=== PATIENT | female | born 1975 | race African-American/Black ===

== ENCOUNTER 2017-05-17 14:13 | Emergency (ER) | payer OTHER ==
[~2017-05-17] VITALS: Ht 160 cm; Wt 123.8 kg
[~2017-05-17 14:13] MED LIST: KEFLEX500 MG ORAL; NORCO 10/3251 EA ORAL
[2017-05-17] MEDS ORDERED: insulin (14:27)
[2017-05-17] MEDS ORDERED: Metoclopramide 10mg/2ml Inj IVP ONE (14:45)
[2017-05-17] MEDS ORDERED: DiphenhydrAMINE 50mg/ml Inj IVP ONE (14:45)
[2017-05-17] MEDS ORDERED: LORazepam Inj 2mg/ml 1ml IV ONE (14:45)
[2017-05-17 15:02] LABS: APPEARANCE,URINE CLEAR; KETONES,URINE NEGATIVE (NEGATIVE); LEUKOCYTE ESTERASE ,URINE 1+ (NEGATIVE); NITRITE,URINE NEGATIVE (NEGATIVE); PH,URINE 6 (4.5-8.0); PROTEIN,URINE NEGATIVE (NEGATIVE); UROBILINOGEN,URINE NORMAL MG/DL (0.0-1.0)
[2017-05-17 15:03] LABS: BASOPHILS % (AUTO) 0.7 % (0.0-2.0); EOSINOPHILS % (AUTO) 1.7 % (0.0-3.0); MEAN CORPUSCULAR HEMOGLOBIN 27.9 PG (27.0-31.0); MEAN CORPUSCULAR HGB CONC 31.5 G/DL (32.0-36.0); MEAN CORPUSCULAR VOLUME 88 FL (80-99); MEAN PLATELET VOLUME 7.4 FL (6.5-10.1); MONOCYTES % (AUTO) 6.2 % (1.0-10.0); NEUTROPHILS % (AUTO) 45.4 % (45.0-75.0); PLATELET COUNT 235 K/UL (150-450); RED BLOOD COUNT 4.61 M/UL (4.20-5.40); RED CELL DISTRIBUTION WIDTH 13.2 % (11.6-14.8)
[2017-05-17 15:13] LABS: RBC,URINE 0 /HPF (0 - 2); SQUAMOUS EPITHELIAL CELL,UR OCCASIONAL /LPF (NONE/OCC)
[2017-05-17 15:18] VITALS: BP 120/69
[2017-05-17 15:34] LABS: ALANINE AMINOTRANSFERASE 26 U/L (12-78); ALBUMIN/GLOBULIN RATIO 0.9 (1.0-2.7); ANION GAP 10 mmol/L (5-15); ASPARTATE AMINO TRANSFERASE 20 U/L (15-37); CALCIUM 9.1 MG/DL (8.5-10.1); CARBON DIOXIDE 23 MMOL/L (21-32); CHLORIDE 100 MMOL/L (98-107); CREATININE 1.1 MG/DL (0.55-1.30); GLOMERULAR FILTRATION RATE > 60 mL/min (>60); POTASSIUM 4.6 MMOL/L (3.5-5.1); SODIUM 132 MMOL/L (136-145); TOTAL PROTEIN 7.4 G/DL (6.4-8.2)
[2017-05-17] MEDS ORDERED: ADVAIR 100-501 EACH INH (15:39)
[2017-05-17] MEDS ORDERED: CYCLOBENZAPRINE10 MG ORAL (15:39)
[2017-05-17] MEDS ORDERED: FOLIC ACID0.4 MG ORAL (15:39)
[2017-05-17] MEDS ORDERED: COZAAR100 MG ORAL (15:39)
[2017-05-17] MEDS ORDERED: HUMALOG100 UNIT/4 SUBQ (15:39)
[2017-05-17] MEDS ORDERED: PLAQUENIL200 MG ORAL (15:39)
[2017-05-17] MEDS ORDERED: VISTARIL25 M1 PO (15:39)
[2017-05-17] MEDS ORDERED: ALPRAZOLAM0.5 MG PO (15:39)
[2017-05-17] MEDS ORDERED: VENTOLIN HFA18 GM INH (15:39)
[2017-05-17] MEDS ORDERED: ROXICODONE5 MG ORAL (15:39)
[2017-05-17] MEDS ORDERED: BASAGLAR K100 UNIT/1 SQ (15:39)
[2017-05-17] MEDS ORDERED: HYDROmorphone 1mg/ml Carpuject IVP ONE (16:15)
--- NOTE | 2017-05-17 17:34 | Emergency Room Report ---
History of Present Illness General Chief Complaint: Pain Source: Patient Present Illness HPI 42-year-old female presents ED or evaluation. Patient came from PMD office today with critically high Accu-Chek. Patient has history of diabetes and is taking medication. States she is compliant with her medication. Patient states she feels a headache. Has history of headaches. 10 out of 10, throbbing , nonradiating. Denies photophobia or blurry vision. Denies nausea or vomiting. Denies neck stiffness. Denies fevers chills. No other aggravating relieving factors. Denies any other associated symptoms Allergies: Coded Allergies: IBUPROFEN (Unverified Allergy, Unknown, Shortness of Breath, 04/07/15) MORPHINE (Unverified Allergy, Unknown, Itching, 04/07/15) SULFAMETHOXAZOLE (Unverified Allergy, Unknown, Hives, 04/07/15) TRIMETHOPRIM (Unverified Allergy, Unknown, Hives, 04/07/15) Patient History Past Medical History: DM, HTN, CAD, asthma Past Surgical History: none Pertinent Family History: none Social History: Denies: smoking, alcohol use, drug use Now: No Immunizations: UTD Reviewed Nursing Documentation: PMH: Agreed, PSxH: Agreed Nursing Documentation-PMH Hx Cardiac Problems: Yes - lupus, fibromyalgia, stent kidney x1 Hx Hypertension: Yes Hx Asthma: Yes Hx Diabetes: Yes Hx Neurological Problems: No - Rheumatic Arthritis, Fibromyalgia, Lupus Review of Systems All Other Systems: negative except mentioned in HPI Physical Exam Vital Signs Date Time Temp Pulse Resp B/P (MAP) Pulse Ox O2 Delivery O2 Flow Rate FiO2 05/17/17 14:14 98.1 106 22 129/70 99 Room Air Sp02 EP Interpretation: reviewed, normal General Appearance: alert, GCS 15, non-toxic, mild distress, obese Head: normocephalic, atraumatic Eyes: bilateral eye normal inspection, bilateral eye PERRL ENT: hearing grossly normal, normal pharynx, no angioedema, normal voice Neck: full range of motion, supple/symm/no masses Respiratory: chest non-tender, lungs clear, normal breath sounds, speaking full sentences Cardiovascular #1: regular rate, rhythm, no edema Cardiovascular #2: 2+ carotid (R), 2+ carotid (L), 2+ radial (R), 2+ radial (L) , 2+ dorsalis pedis (R), 2+ dorsalis pedis (L) Gastrointestinal: normal bowel sounds, non tender, soft, non-distended, no guarding, no rebound Rectal: deferred Genitourinary: normal inspection, no CVA tenderness Musculoskeletal: back normal, gait/station normal, normal range of motion, non- tender Neurologic: alert, oriented x3, responsive, motor strength/tone normal, sensory intact, speech normal Psychiatric: judgement/insight normal, memory normal, mood/affect normal, no suicidal/homicidal ideation Reflexes: 3+ bicep (R), 3+ bicep (L), 3+ tricep (R), 3+ tricep (L), 3+ knee (R) , 3+ knee (L) Skin: normal color, no rash, warm/dry, well hydrated Lymphatic: no adenopathy Medical Decision Making Diagnostic Impression: Primary Impression: Hyperglycemia Additional Impression: Headache Qualified Codes: R51 - Headache ER Course Hospital Course 42-year-old female presenting to ED with elevated BS. also c/o headache Differential diagnoses include: ETOH/drug ingestion, sepsis, DKA Clinical course Patient placed on stretcher. On cardiac tech. After initial history and physical I ordered labs, IV fluids, reglan, benedryl, dilaudid for pain Labs-glucose > 500, no anion gap, bicarbonate normal, electrolytes ok. no leukocytosis. acetone negative On reassessment Accu-Chek is improved. Given insulin. Headache is improved. Patient can be safely discharged to home i. I feel this is a highly complex case requiring extensive working including EKG/Rhythm strip, Xray/CT/US, Blood/urine lab work, repeat exams while in ED, and administration of strong opiates/narcotics for pain control, admission to hospital or close patient follow up. diagnosis - hyperglycemia, headache Stable and discharged to home. follow insulin regimen as directed. Followup with PMD. Return to ED if symptoms recur or worsen Labs Test 05/17/17 14:40 05/17/17 14:45 Urine Color Pale yellow Urine Appearance Clear Urine pH 6 (4.5-8.0) Urine Specific [place] 1.005 (1.005-1.035) Urine Protein Negative (NEGATIVE) Urine Glucose (UA) 4+ (NEGATIVE) Urine Ketones Negative (NEGATIVE) Urine Occult Blood Negative (NEGATIVE) Urine Nitrite Negative (NEGATIVE) Urine Bilirubin Negative (NEGATIVE) Urine Urobilinogen Normal MG/DL (0.0-1.0) Urine Leukocyte Esterase 1+ (NEGATIVE) Urine RBC 0 /HPF (0 - 2) Urine WBC 2-4 /HPF (0 - 2) Urine Squamous Epithelial Cells Occasional /LPF Urine Bacteria None /HPF (NONE) White Blood Count 9.0 K/UL (4.8-10.8) Red Blood Count 4.61 M/UL (4.20-5.40) Hemoglobin 12.9 G/DL (12.0-16.0) Hematocrit 40.7 % (37.0-47.0) Mean Corpuscular Volume 88 FL (80-99) Mean Corpuscular Hemoglobin 27.9 PG (27.0-31.0) Mean Corpuscular Hemoglobin Concent 31.5 G/DL (32.0-36.0) Red Cell Distribution Width 13.2 % (11.6-14.8) Platelet Count 235 K/UL (150-450) Mean Platelet Volume 7.4 FL (6.5-10.1) Neutrophils (%) (Auto) 45.4 % (45.0-75.0) Lymphocytes (%) (Auto) 46.0 % (20.0-45.0) Monocytes (%) (Auto) 6.2 % (1.0-10.0) Eosinophils (%) (Auto) 1.7 % (0.0-3.0) Basophils (%) (Auto) 0.7 % (0.0-2.0) Sodium Level 132 MMOL/L (136-145) Potassium Level 4.6 MMOL/L (3.5-5.1) Chloride Level 100 MMOL/L (98-107) Carbon Dioxide Level 23 MMOL/L (21-32) Anion Gap 10 mmol/L (5-15) Blood Urea Nitrogen 15 mg/dL (7-18) Creatinine 1.1 MG/DL (0.55-1.30) Estimat Glomerular Filtration Rate > 60 mL/min (>60) Glucose Level 558 MG/DL (74-106) Calcium Level 9.1 MG/DL (8.5-10.1) Magnesium Level 2.0 MG/DL (1.8-2.4) Total Bilirubin 0.1 MG/DL (0.2-1.0) Aspartate Amino Transf (AST/SGOT) 20 U/L (15-37) Alanine Aminotransferase (ALT/SGPT) 26 U/L (12-78) Alkaline Phosphatase 110 U/L (46-116) Total Protein 7.4 G/DL (6.4-8.2) Albumin 3.4 G/DL (3.4-5.0) Globulin 4.0 g/dL Albumin/Globulin Ratio 0.9 (1.0-2.7) Acetone Level Negative (NEGATIVE) Last Vital Signs Date Time Temp Pulse Resp B/P (MAP) Pulse Ox O2 Delivery O2 Flow Rate FiO2 05/17/17 17:12 98.1 05/17/17 15:18 102 21 120/69 100 Room Air Status: improved Disposition: HOME, SELF-CARE Condition: Stable Patient Instructions: Hyperglycemia, [id number] JESSENIA COMBS M.D. May 17, 2017 17:34
[2017-05-17 18:25] VITALS: BP 110/58
== END 2017-05-17 18:00 | disposition home or self-care (01) ==
LOC: EMR 16:36
DX: E11.65 Type 2 diabetes mellitus with hyperglycemia (principal); R51 Headache; Z88.6 Allergy status to analgesic agent; Z88.5 Allergy status to narcotic agent; Z88.2 Allergy status to sulfonamides; I10 Essential (primary) hypertension; I25.10 Atherosclerotic heart disease of native coronary artery without angina pectoris; J45.909 Unspecified asthma, uncomplicated; M32.9 Systemic lupus erythematosus, unspecified; M79.7 Fibromyalgia
CPT/HCPCS: 36415; 80053; 81003; 82009; 83735; 85025; 96374; 96375; 99284; J1170; J1200; J1815; J2765